=== PATIENT | female | born 1985 | race Asian ===

== ENCOUNTER → 2016-05-17 | Outpatient (CLI) | payer BC ==
[~2016-05-17] MED LIST: PRENTAB26 PO
[2016-05-17 21:15] LABS: GTGD 50 Grams
[2016-05-21 17:32] LABS: AFP CONCENTRATION 45.6 NG/ML; AFPTS GESTATIONAL AGE 16.6 WEEKS; AFPTS INSULIN DEP DIABETIC? NO; AFPTS MATERNAL WT 133 LBS; ESTRIOL MULTIPLE OF MEDIAN 0.71; HISTORY OF NTD NO; INHIBIN A 173 PG/ML; INHIBIN A MOM 0.94; REPEAT SAMPLE? NO; hCG MULTIPLE OF MEDIAN 1.53
== END | disposition home or self-care (01) ==
LOC: C.LAB1850 12:16
PROVIDERS: ATTEND Obstetrics & Gynecology
DX: Z34.00 Encounter for supervision of normal first pregnancy, unspecified trimester (principal)

== ENCOUNTER → 2016-08-07 | Outpatient (CLI) | payer BC ==
[2016-08-07 15:45] LABS: HEMATOCRIT 38.7 % (37-47)
[2016-08-07 16:43] LABS: URINE APPEARANCE CLEAR (CLEAR); URINE BILIRUBIN NEG (NEG); URINE COLOR YELLOW; URINE EPITHELIAL CELL AUTO >30 /lpf (0-5); URINE NITRITE NEG (NEG); URINE PH 8.5 (4.5-7.5); URINE SPECIFIC GRAVITY 1.007 (1.000-1.030); UROBILINOGEN NEG (NEG)
[2016-08-07 16:52] LABS: MANUAL MICROSCOPIC REQUIRED? NO; REVIEW REQ? NO
[2016-08-07 18:39] LABS: GTGD 50 Grams
== END | disposition home or self-care (01) ==
LOC: C.LAB1850 14:22
PROVIDERS: ATTEND Obstetrics & Gynecology
DX: Z34.02 Encounter for supervision of normal first pregnancy, second trimester (principal)

== ENCOUNTER → 2016-08-21 | Outpatient (CLI) | payer BC | END | disposition home or self-care (01) | LOC: C.LAB1850 08:57 | PROVIDERS: ATTEND Obstetrics & Gynecology | DX: O28.9 Unspecified abnormal findings on antenatal screening of mother (principal); Z3A.00 Weeks of gestation of pregnancy not specified ==

== ENCOUNTER → 2016-10-02 | Outpatient (CLI) | payer BC | END | disposition home or self-care (01) | LOC: C.LABSPEC 17:25 | PROVIDERS: ATTEND Obstetrics & Gynecology | DX: Z34.03 Encounter for supervision of normal first pregnancy, third trimester (principal) ==

== ENCOUNTER 2016-10-21 18:08 | Inpatient (IN) | payer BC ==
[~2016-10-21] VITALS: Ht 170.2 cm; Wt 59.0 kg
[2016-10-21] MEDS ORDERED: LACTATED RINGER'S 1000ML 500 ML IV PRN (19:05)
[2016-10-21] MEDS ORDERED: OXYTOCIN 30 UNITS/500ML NSS IV PRN (19:15)
[2016-10-21] MEDS ORDERED: PATIENT'S ALLERGY INFO NEEDS ENTERED SCH (19:15)
[2016-10-21 19:34] LABS: HEMATOCRIT 40.6 % (37-47); MEAN CELL VOLUME 97.1 fL (80-100); MEAN CORPUSCULAR HEMOGLOBIN 33.7 pg (25-34); MEAN CORPUSCULAR HGB CONC 34.7 g/dl (32-36); MEAN PLATELET VOLUME 10.6 fL (7.4-10.4); PLATELET COUNT 206 K/uL (130-400); RED BLOOD COUNT 4.18 M/uL (4.2-5.4); WHITE BLOOD COUNT 10.44 K/uL (4.8-10.8)
[2016-10-21 20:26] VITALS: Ht 170.2 cm; Wt 59.0 kg
[2016-10-21] MEDS ORDERED: PRENTAB26 PO (20:33)
[2016-10-21] MEDS: LACTATED RINGER'S 1000ML 1,000 ML IV SCH (21:53)
[2016-10-22] MEDS: LACTATED RINGER'S 1000ML 1,000 ML IV SCH ×2 (05:57→08:44)
[2016-10-22] MEDS ORDERED: EpHEDrine SULFATE INJ 50 MG/ML AMP ONE (08:01)
[2016-10-22] MEDS ORDERED: FENTANYL CITRATE INJ 50 MCG/1 ML 2 ML VIAL ONE (08:01)
[2016-10-22] MEDS ORDERED: FENTANYL 2MCG/ML ROPIV 1.25MG/ML 100ML BAG EPI ONE (08:01)
[2016-10-22] MEDS ORDERED: BUPIVACAINE 0.25% 30 ML VIAL ONE (08:01)
[2016-10-22] MEDS ORDERED: NALOXONE HCL INJ 1 MG in SODIUM CHLORIDE 0.9% 1000ML 1,000 ML IV PRN (08:52)
[2016-10-22] MEDS ORDERED: LACTATED RINGER'S 1000ML 500 ML IV PRN (08:52)
[2016-10-22] MEDS ORDERED: DiphenhydrAMINE HCL 50 MG/ML VIAL IV PRN (09:00)
[2016-10-22] MEDS ORDERED: EpHEDrine SULFATE INJ 50 MG/ML AMP IV PRN (09:00)
[2016-10-22] MEDS ORDERED: FENTANYL 2MCG/ML ROPIV 1.25MG/ML 100ML BAG EPI PRN (09:00)
[2016-10-22] MEDS ORDERED: NALBUPHINE HCL INJ 10 MG/ML AMP IV PRN (09:00)
[2016-10-22] MEDS ORDERED: ONDANSETRON INJ 2 MG/ML 2 ML VIAL IV PRN (09:00)
[2016-10-22] MEDS ORDERED: NALOXONE HCL INJ 0.4 MG/1 ML VIAL/CARP IV PRN (09:00)
[2016-10-22] MEDS ORDERED: LANOLIN OINT EXT PRN ×2 (11:30)
[2016-10-22] MEDS ORDERED: OXYTOCIN 30 UNITS/500ML NSS IV PRN (11:30)
[2016-10-22] MEDS ORDERED: ACETAMINOPHEN/CODEINE 300/30MG TAB PO PRN ×2 (11:30)
[2016-10-22] MEDS ORDERED: BENZOCAINE 20% AER SPR 82.5 GM CAN EXT PRN (11:30)
[2016-10-22] MEDS ORDERED: SUPERCREAM 0.870 % 15GM JAR EXT PRN (11:30)
[2016-10-22] MEDS ORDERED: ACETAMINOPHEN 325 MG TAB PO PRN (11:30)
--- NOTE | 2016-10-22 11:34 | Vaginal Delivery Summary ---
Vaginal Delivery Summary The patient is a 30-year-old female EDC 10/28/2016 who presents at 39 weeks with spontaneous rupture of membranes clear fluid approximately 26 hours ago. She begun on Pitocin augmentation of labor she received adequate epidural analgesia she progressed to full dilation and for delivery of a viable male infant. A loose nuchal cord was reduced at the time of delivery the anterior arm was also presenting and was delivered prior to the rest of the infant. Spontaneous crying occurred, mouth and nasopharynx were suctioned on the perineum and then the was placed on mother's abdomen for further attention and drying. There is movement of all 4 limbs and vigorous crying. Second-degree perineal laceration was repaired in the usual fashion with 3-0 chromic. Estimated blood loss 300 mL. Mother and infant were doing well after delivery.
--- NOTE | 2016-10-22 11:36 | Anesthesia Procedure Note ---
Anesthesia Epidural Removal Nt Date & Time Oct 22, 2016 at 11:36 Vital Signs Pain Intensity: 0.0 Notes Mental Status: alert / awake / arousable, participated in evaluation Nausea / Vomiting: adequately controlled Pain: adequately controlled Airway Patency, RR, SpO2: stable & adequate BP & HR: stable & adequate Hydration State: stable & adequate Neuraxial Anesthesia: was administered Anesthetic Complications: no major complications apparent, pt satisfied with anesthetic care Epidural: removed without complications, with tip intact
[2016-10-22 14:00] VITALS: BP 133/77; PULSE 79; TEMP 37.3; O2SAT 96
[2016-10-22 15:00] VITALS: BP 129/71; PULSE 90; TEMP 37.1; O2SAT 96
[2016-10-22 19:45] VITALS: BP 111/69; PULSE 81; TEMP 37.1
[2016-10-22] MEDS: DOCUSATE SODIUM 100 MG CAP PO SCH (20:58)
[2016-10-22 23:30] VITALS: BP 124/80; PULSE 85; TEMP 37
[2016-10-22] MEDS: IBUPROFEN 600 MG TAB PO PRN (23:49)
[2016-10-23 04:45] VITALS: BP 110/71; PULSE 74; TEMP 36.5
--- NOTE | 2016-10-23 06:32 | Progress Note ---
Subjective Oct 23, 2016. Subjective conversation w/ patient, physical exam Ambulation: ambulating normally Voiding: no voiding problems Passing Gas: Yes Diet Tolerance: Regular Diet Lochia: Moderate Feeding Type: Breast Feeding Review of Systems Constitutional: No fever, No chills, No sweats, No weight loss, No weakness, No fatigue, No problem reported Breast: No see HPI, No breast lump, No change in shape, No nipple discharge, No breast pain, No problem reported Female : No see HPI, No dysuria, No urinary frequency, No hematuria, No incontinence, No abnormal vaginal bleeding, No vaginal discharge, No problem reported Objective Vital Signs Date Time Temp Pulse Resp B/P (MAP) Pulse Ox O2 Delivery O2 Flow Rate FiO2 10/23/16 04:45 36.5 74 18 110/71 (84) Room Air 10/22/16 23:30 Room Air 10/22/16 23:30 37.0 85 18 124/80 (95) Room Air 10/22/16 19:45 37.1 81 16 111/69 (83) Room Air 10/22/16 15:45 Room Air 10/22/16 15:00 37.1 90 18 129/71 (90) 96 Room Air 10/22/16 14:00 37.3 79 16 133/77 (95) 96 Room Air Physical Exam General Appearance: WELL-APPEARING, NO APPARENT DISTRESS Abdomen: non tender, soft Fundus: Firm, Non-Tender, Relation to Umbilicus (2 below U) Extremities: no calf tenderness Laboratory Results Last 24 Hours Test 10/22/16 07:31 10/22/16 09:48 10/23/16 04:44 Bedside Glucose 107 mg/dl 103 mg/dl Assessment and Plan Day#: 1 Continue Routine Care: stable course continue current care plan.
[2016-10-23 07:25] LABS: HEMATOCRIT 34.6 % (37-47)
[2016-10-23 07:53] VITALS: BP 118/83; PULSE 74; O2SAT 98
[2016-10-23] MEDS: DOCUSATE SODIUM 100 MG CAP PO SCH ×2 (09:23→20:37)
[2016-10-23] MEDS: PRENATAL VITAMIN TAB PO SCH (09:23)
[2016-10-23] MEDS: IBUPROFEN 600 MG TAB PO PRN (09:24)
[2016-10-23 15:30] VITALS: BP 109/69; PULSE 66; TEMP 36.6
[2016-10-23] MEDS ORDERED: BISACODYL 5 MG TABEC PO SCH (20:00)
[2016-10-24 00:35] VITALS: BP 129/87; PULSE 73; TEMP 37; O2SAT 96
[2016-10-24] MEDS: IBUPROFEN 600 MG TAB PO PRN (01:46)
--- NOTE | 2016-10-24 07:12 | Progress Note ---
Subjective Oct 24, 2016. Subjective conversation w/ patient, physical exam Ambulation: ambulating normally Voiding: no voiding problems Diet Tolerance: Regular Diet Lochia: Small Feeding Type: Breast Feeding Pain: no pain issues Objective Vital Signs Date Time Temp Pulse Resp B/P (MAP) Pulse Ox O2 Delivery O2 Flow Rate FiO2 10/24/16 00:35 37.0 73 18 129/87 (101) 96 Room Air 10/24/16 00:35 Room Air 10/23/16 15:30 Room Air 10/23/16 15:30 36.6 66 20 109/69 (82) Room Air 10/23/16 07:53 74 20 118/83 (95) 98 Room Air 10/23/16 07:35 Room Air Physical Exam General Appearance: WELL-APPEARING, WD/WN, NO APPARENT DISTRESS Respiratory/Chest: lungs clear Cardiovascular: regular rate, rhythm Abdomen: non tender, soft Fundus: Firm, Relation to Umbilicus (2 down) Extremities: non-tender Assessment and Plan Post- Day#: 2 Continue Routine Care: stable, ready for d/c home, instructions reviewed, will call to make 6wk pp check. .
--- NOTE | 2016-10-24 07:13 | Discharge Instructions ---
Discharge Instructions Date of Service Oct 24, 2016. Admission Reason for Admission: Check Ruptured Membranes Discharge Discharge Diagnosis / Problem: after delivery Discharge Goals Goal(s): Routine recovery after delivery Medications Continue Dispensed Medications: supercream, dermaplast, tucks, lansinoh Activity Recommendations Activity Limitations: as noted below . Instructions / Follow-Up Instructions / Follow-Up ACTIVITY RECOMMENDATIONS: * Gradual return to full activity over the next 2-3 weeks. * No lifting - nothing heavier than baby over the next 2-3 weeks. * Do not engage in vigorous exercise, sexual activity or sports until cleared by your physician. * Do not drive or operate any motorized equipment until cleared by your physician. * You may shower/bathe daily. MEDICATIONS: For discomfort or pain, you may use Acetaminophen (Tylenol), Ibuprofen (Advil), or Naproxen (Aleve) following the package directions. For constipation you may use Colace following the package directions. BREAST CARE: If you are not breast feeding: * Wear a supportive bra 24 hours a day for one to two weeks. * Avoid stimulating your breasts and nipples as much as possible during the first few weeks after delivery. * When taking a shower, have the warm water hit your back, not breasts. * When your breasts feel full, apply ice packs. Usually three to four times a day helps ease the discomfort. * Take a mild pain medication (Tylenol / Motrin) when you are uncomfortable. If breast feeding: * Use breast milk to lubricate nipples. Lansinoh cream may be used for sore nipples. You do not need to remove cream prior to breast feeding. If using a different brand of cream, check the label for directions regarding removal of cream prior to nursing. * Wear a supportive bra. * If having problems with breasts or breast feeding, call a physician practice consultant or your health care provider. EPISIOTOMY CARE: After delivery, if you have an episiotomy (stitches), the following steps will ease discomfort and aid healing. * For the first 24 hours after delivery, place ice packs next to your episiotomy to help reduce swelling. * After the first 24 hour-period, sitz baths, either portable or in the tub, are suggested. A shower with a shower arm sprayed over the episiotomy may be comforting. * Jillian care should be done after each voiding and bowel movement. Squirt warm water from a plastic bottle over the perineum (region of the body between the anus and urinary opening) and pat dry. * Use Dermoplast to ease discomfort. Shake container. Mound directly over the episiotomy. Place a Tucks on a clean sanitary pad next to your episiotomy. SPECIAL CARE INSTRUCTIONS: When you are discharged from the hospital, it is important for you to follow the instructions listed below: * During the first week at home, you should be able to care for yourself and your baby. In addition, the usual light household activities are encouraged. * Limit your activities to the way you feel. Do not try to clean the house or move furniture. Be sensible. * If you actively engage in sports and have done so up until the time of your delivery, you may resume these activities as soon as you feel able. This may take up to one month or even longer. Use good judgment. * Continue to take your vitamins for at least six weeks after the of your baby. * Your diet need not be limited unless you were on a special diet before your delivery. Breast-feeding mothers need around 2500 calories per day and at least 64-80 ounces of fluid per day (8 to 10 glasses). * You should eat foods from the four major food groups. Crash diets or fad diets are to be avoided. Eating lean meats, fresh fruits and vegetables, low-fat dairy products, high fiber foods and a regular exercise program, will help you get back to your pre- weight without putting your health at risk. * Constipation is sometimes a problem after delivery. Take a mild laxative as needed. If breast feeding, Milk of Magnesia is acceptable to use. You may use a suppository or Fleets enema if no episiotomy. * A daily shower or tub bath is suggested. Be sure to thoroughly and gently dry the perineum. * A bloody vaginal discharge will usually continue until around four weeks post . A small amount of bleeding may continue for as long as six weeks. Vaginal discharge changes from the bright red bleeding after delivery to pink then brownish and finally yellowish-pink before becoming white and disappearing. * Bleeding may increase with activity. Your first period may come in 4-8 weeks. If you are breast feeding, your period may be delayed even longer. * Eek (sex) can begin whenever both you and your partner feel comfortable and do not have any form of genital infection. It is recommended that you wait at least six weeks for internal and external healing to occur. If you have questions, please talk to your health care practitioner. A condom should be used to prevent infection and . * Foreplay, gentle intercourse and lubrication is very important the first several times to prevent pain. A water-based lubricant such as K-Y jelly or Astroglide may be used. * If you have RH negative blood and your baby is RH positive, you will receive RHOGAM by injection prior to discharge. The nurse will give you a card to keep with you that has the date and place that you received RHOGAM after delivery. * During your care, you had a Rubella screen done to check for the presence of rubella antibodies in your blood. If your test was negative, you will receive a Rubella vaccine prior to discharge. This vaccine may cause a fever, soreness at the injection site and flu-like symptoms. If these symptoms persist, notify your health care practitioner. is not advised for one month after a Rubella vaccine. * Verbalizes understanding of car seat law as reviewed with patient nursing. * Car Seat hand-out given and reviewed with patient by nursing. * Shaken baby information reviewed with patient by nursing. Call you doctor if: * Heavy bleeding (saturating several pads an hour) or passing clots the size of your fist. * A fever >101 degrees F (38.3 degrees C) on two occasions four hours apart and /or chills. * Unusual pain in the pelvic or vaginal areas. * "Baby Blues" lasting longer than two weeks. If you have any questions or concerns, call your health care practitioner at . FOLLOW UP VISIT: * Please call the office at to schedule a 6 week examination. It is important you keep this appointment. It is important for you to make arrangements for either yearly or twice yearly check-ups thereafter. Current Hospital Diet Patient's current hospital diet: Regular OB Diet Discharge Diet Recommended Diet: Regular Diet Pending Studies Studies pending at discharge: no Medical Emergencies . Who to Call and When: Medical Emergencies: If at any time you feel your situation is an emergency, please call 911 immediately. . Non-Emergent Contact Non-Emergency issues call your: Readers' Advisory Service Librarian . . "Provider Documentation" section prepared by Maira Mena. . VTE Core Measure Inpt VTE Proph given/why not?: Treatment not indicated
[2016-10-24 08:00] VITALS: BP 111/73; PULSE 66; TEMP 36.4
[2016-10-24] MEDS: PRENATAL VITAMIN TAB PO SCH (09:00)
[2016-10-24] MEDS: DOCUSATE SODIUM 100 MG CAP PO SCH (09:00)
[2016-10-24 12:15] VITALS: BP_DIAS 73; PULSE 66; TEMP 36.4
== END 2016-10-24 12:15 | disposition home or self-care (01) | DRG 775 ==
LOC: C.OPB 18:08 → C.LD 18:08 → C.OPB 19:04 → C.LD 19:04 → C.OBG 10-22 15:11
PROVIDERS: ADMIT Obstetrics & Gynecology; ATTEND Obstetrics & Gynecology
PROC: 0KQM0ZZ Repair Perineum Muscle, Open Approach (ICD-10-PCS; principal; 2016-10-22)
PROC: 10E0XZZ Delivery of Products of Conception, External Approach (ICD-10-PCS; principal; 2016-10-22)
DX: O24.420 Gestational diabetes mellitus in childbirth, diet controlled (principal); O69.81X0 Labor and delivery complicated by cord around neck, without compression, not applicable or unspecified; O70.1 Second degree perineal laceration during delivery; Z37.0 Single live birth; Z3A.39 39 weeks gestation of pregnancy

== ENCOUNTER → 2016-12-31 | Outpatient (CLI) | payer BC ==
[2016-12-31 13:46] LABS: GLUCOSE,2HR PP 104 mg/dl (70-140)
[2016-12-31 15:32] LABS: GTGD 75 Grams
== END | disposition home or self-care (01) ==
LOC: C.LAB1850 10:15
PROVIDERS: ATTEND Obstetrics & Gynecology
DX: O24.419 Gestational diabetes mellitus in pregnancy, unspecified control (principal)

== ENCOUNTER 2021-06-10 07:58 | Inpatient (IN) ==
[2021-06-10] MEDS ORDERED: LACTATED RINGER'S 1,000 ML IV PRN (08:37)
[2021-06-10] MEDS ORDERED: PENICILLIN G POTASSIUM 6 MU in DEXTROSE 5% 250 ML IV STA (08:37)
[2021-06-10] MEDS ORDERED: OXYTOCIN 30 UNITS/500 ML BAG IV PRN ×3 (08:37→16:50)
--- NOTE | 2021-06-10 08:41 | History & Physical Report ---
Date of Service June 10, 2021 Assessment & Plan (1) Gestational diabetes mellitus (GDM) affecting : (2) GBS (group B streptococcus) UTI complicating : (3) SROM (spontaneous rupture of membranes): Plan: plan admission as likely ruptured and postdates. Fetus category one. Treat GBS positive status. Offered pitocin now. Considering. ok for expectant management if desires. Hourly BS. Anticipate . History of Present Illness Chief Complaint: rom and contractions Primary Care Provider: NO PCP Patient is a 35yoaf with iup at 40 4/7 who presents to labor and delivery noting trickling of fluid since 6:30 am and contractions. complicated by diet controlled gdm and ama. She is scheduled for postdates induction on Saturday. She notes good fm. and Delivery Plans AMA Weekly NSTs @36 weeks GDM *Begin monthly AC Us's @24wks GBS positive in urine *treat in labor OB Labs: Blood Type O Positive 10/26/20 Antibody Screen NEGATIVE 10/26/20 Hemoglobin 13.1 g/dL (12.0-16.0) 03/16/21 Hematocrit 38.5 % (37-47) 03/16/21 Mean Corpuscular Volume 96.7 fL (80-100) 10/26/20 Platelet Count 280 K/uL (130-400) 10/26/20 Rubella IgG Antibody Immune (Immune) 10/26/20 Rapid Plasma Reagin Nonreactive (Nonreactive) 10/26/20 Hepatitis B Surface Antigen Neg (Neg) 10/26/20 HIV (1&2) Ab and P24 Ag, 4th Gener Neg (Neg) 10/26/20 Glucose 2 Hour Postprandial 104 mg/dl (70-140) 12/31/16 Maternal Serum Alpha Fetoprotein 61.7 ng/mL 12/22/20 OB Optional Labs: Chlamydia trachomatis RNA NOT DETECTED (NOT DETECTED) 10/26/20 Neisseria gonorrhoeae RNA NOT DETECTED (NOT DETECTED) 10/26/20 Alpha Fetoprotein Triple Screen SEE NOTE 12/22/20 Labs Reviewed: low risk cfdna neg cf/sma Allergies Allergy/AdvReac Type Severity Reaction Status Date / Time No Known Allergies Allergy Verified 06/10/21 08:38 Home Medications Medication Instructions Recorded Confirmed Type acetone (urine) test (Ketone Urine #50 ea 11/17/20 06/08/21 Rx Test) blood sugar diagnostic (OneTouch #150 ea 11/17/20 06/08/21 Rx Verio test strips) blood-glucose meter (OneTouch #1 ea 11/17/20 06/08/21 Rx Verio Reflect Meter) lancets 33 gauge (OneTouch Delica #150 ea 11/17/20 06/08/21 Rx Lancets) prenat.vits,garcia,xec-wedv-ypuge 1 tab PO DAILY 06/10/21 06/10/21 History Patient History Medical History No known health problems Surgical History H/O wisdom tooth extraction Family History Father Diabetes Other Hypertension Denies family history of Ovarian cancer Prostate cancer Breast cancer Colorectal cancer Social History Smoking Status: Never smoker Second Hand Exposure: No; Hx Alcohol Use: No Hx Substance Use: No Preferred Language: Japanese Communication Ability: Effective Visual Impairment: No Limitations Hearing Ability: Normal Scientific Recruiter Required: No Beliefs That Will Affect Care: None marital status: marital status details: Christiano Schwartz (36) [phone] Current Living Situation: Spouse Current Living Situation Comment: and son current occupational status: employed 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 DateGA wksLbr LgthBirth wtSexType delAnesPlaceDel ProvPreterm?Comment 10/22/16 39 6-[address] [facility] Dr [place] GDM AD TAKER History noncontributory Physical Exam Constitutional: WD/WN, vitals as above Gastrointestinal (Abdomen): soft, gravid, nt Psychiatric: A+Ox3, euthymic affect Genitourinary: cx--5/75/-2, cannot palpate bag toco--q8min efm--150s with mod variabiltiy, small accels , no decels Results & Data ([facility]) Vital Signs (Past 12 Hours) Vital Signs Temp Pulse Resp BP 06/10/21 08:14 37.1 C 20 06/10/21 08:12 100 H 123/59 L Coding Level of Care Code None Diagnoses Gestational diabetes mellitus (GDM) affecting O24.419 GBS (group B streptococcus) UTI complicating O23.40; B95.1 SROM (spontaneous rupture of membranes)
[2021-06-10 08:54] LABS: Hematocrit (blood only) 36.8 % (37-47); Hemoglobin 12.7 g/dL (12.0-16.0); Mean Corpuscular Hemoglobin 33.2 pg (25-34); Mean Corpuscular Hgb Conc 34.5 g/dL (32-36); Mean Corpuscular Volume 96.3 fL (80-100); Mean Platelet Volume 10.8 fL (7.4-10.4); Platelet Count 217 K/uL (130-400); RDW Standard Deviation 45.2 fL (36.4-46.3); Red Blood Count 3.82 M/uL (4.2-5.4); White Blood Count 9.36 K/uL (4.8-10.8)
[2021-06-10] MEDS ORDERED: PENICILLIN G POTASSIUM 3 MU in DEXTROSE 5% 100 ML IV PRN (11:37)
[2021-06-10] MEDS ORDERED: DEXTROSE IV ONE (13:00)
[2021-06-10] MEDS ORDERED: PENICILLIN POTASSIUM MU IV ONE (13:00)
[2021-06-10] MEDS ORDERED: LIDOCAINE 1% LOCAL 20 ML VIAL ONE (16:30)
[2021-06-10] MEDS ORDERED: BUTORPHANOL TARTRATE 1 MG/ML VIAL ONE (16:36)
[2021-06-10] MEDS ORDERED: ACETAMINOPHEN 325 MG TAB PO PRN (16:50)
[2021-06-10] MEDS ORDERED: BENZOCAINE 20% AER SPR 82.5 GM CAN EXT PRN (16:50)
[2021-06-10] MEDS ORDERED: oxyCODONE/ACETAMINOPHEN 5mg/325mg TAB PO PRN (16:50)
[2021-06-10] MEDS ORDERED: DIPHTHERIA/TETANUS/PERTUSSIS 0.5 ML SYR/VIAL IM ONE (16:50)
[2021-06-10] MEDS ORDERED: HYDROCORTISONE ACETATE 25 MG SUPP PR PRN (16:50)
--- NOTE | 2021-06-10 16:57 | Delivery Summary ---
Supervising Physician Co-Signing Physician Notes Pre-operative Diagnosis: at 40 4/7 weeks srom labor Post-operative Diagnosis: same Procedure: arom of forebag second degree and clitoral laceration and repair EBL: 400cc Anesthesia: local infiltration of lidocaine Procedure: The patient presented with srom and early labor. Unfortunately walked for 6+ hours and only justo about every 8 minutes. Started pitocin and got to 6mU and she noted quickly she felt like the baby was coming. Checked and c/c/+1. The patient pushed for 3 contractions to deliver a viable female in vy position. The nose and mouth were bulb suctioned on the perineum and the rest of the was then delivered without difficulty. A nuchal cord x 1 was easily reduced. The baby was vigorous. The nose and mouth were again bulb suctioned and the was placed in the maternal abdomen for drying and attention. Cord was clamped and cut at at one minute of life. Cord blood and segment obtained. Placenta delivered spontaneous, intact with a three vessel cord. Cervix/sulci/rectum were intact. A second degree perineal laceration was repaired in the normal standard fashion. a bleeding tear under the clitoris was repaired with several interrupted sutures of 4-0 vicryl. Hemostasis obtained with dilute pitocin and fundal massage. Apgars were 8/9. Mother and baby doing well at the end of the delivery. Vaginal Delivery Summary Date of Service June 10, 2021 Vaginal Delivery Summary and 2nd Degree LAC [facility] Vaginal Delivery Charge Delivery Type Details: and 2nd Degree LAC
[2021-06-10] MEDS: DOCUSATE SODIUM 100 MG CAP PO SCH (20:27)
[2021-06-11] MEDS: IBUPROFEN 600 MG TAB PO PRN ×3 (06:24→19:23)
[2021-06-11 06:49] LABS: Hematocrit (blood only) 36.4 % (37-47); Hemoglobin 12.1 g/dL (12.0-16.0)
--- NOTE | 2021-06-11 07:38 | Obstetrical Progress Note ---
Date of Service June 11, 2021 Assessment & Plan (1) Vaginal delivery: Doing well. Routine care. No concerns. Day #:: 1 Subjective Ambulation: ambulating normally Voiding: no voiding problems Passing Gas:: Yes Diet Tolerance:: regular diet Lochia:: Small Feeding Type:: breast feeding cramps with breast feeding. Physical Exam Constitutional WD/WN, vitals as above Cardiovascular Extremities: no calf tenderness and no edema Gastrointestinal (Abdomen) soft, nt, nd ff/nt at 3 below u Results & Data ([facility]) Vital Signs (Past 12 Hours) Vital Signs Temp Pulse Resp BP Pulse Ox 06/11/21 03:41 36.8 C 80 14 102/63 97 06/10/21 22:54 36.8 C 83 14 109/69 96 06/10/21 20:20 37.6 C H 94 H 16 103/72
[2021-06-11] MEDS: PRENATAL VITAMIN 1 TAB PO SCH (08:31)
[2021-06-11] MEDS: DOCUSATE SODIUM 100 MG CAP PO SCH ×2 (08:31→19:23)
[2021-06-11] MEDS ORDERED: bisacodyL 5 MG TABEC PO SCH (20:00)
[2021-06-12] MEDS: IBUPROFEN 600 MG TAB PO PRN ×2 (01:08→07:50)
--- NOTE | 2021-06-12 06:25 | Obstetrical Progress Note ---
Date of Service <Rita Reagan MD - Last Filed: 06/12/21 07:09> June 12, 2021 Assessment & Plan <Rita Reagan MD - Last Filed: 06/12/21 07:09> (1) Vaginal delivery: 35 yo , complicated by AMA, GDMA1, now PPD2 from at 40wk4d -Feeling well, discharge today 06/12 -Vitals reviewed- HDS, afebrile -Blood type O+, GBS+, Rubella immune -F/u in 6 weeks with OB <Veena Marks MD, FACOG - Last Filed: 06/12/21 07:16> (1) Vaginal delivery: Subjective <Rita Reagan MD - Last Filed: 06/12/21 07:09> Ambulation: ambulating normally Voiding: no voiding problems Passing Gas:: Yes Diet Tolerance:: regular diet Lochia:: Small Feeding Type:: breast feeding Current Pain Level(1-10): 0 Pt feeling well, no acute complaints, no pain at present. States going well. Review of Systems Denies fevers/chills. Denies dyspnea, cough. Denies chest pain. Denies breast pain or discharge. Denies dysuria. Denies headache. Denies back pain. Physical Exam <Rita Reagan MD - Last Filed: 06/12/21 07:09> General: Alert, oriented, no acute distress Cardiac: Regular rate and rhythm, normal S1, S2. No murmurs appreciated. Respiratory: Clear to auscultation b/l with good air flow entry, symmetric chest rise and fall. No wheezes or crackles. No increased work of breathing or accessory muscle use Abdomen: Soft, nontender, nondistended. Fundus firm and palpable at 3 cm below umbilicus. No guarding or rebound. Skin: No rashes or lesions Extremities: Warm, dry, well-perfused with capillary refill <2s b/l. No lower extremity edema, erythema or swelling. Negative Sulema's sign b/l. Results & Data ([facility]) <Rita Reagan MD - Last Filed: 06/12/21 07:09> Vital Signs (Past 12 Hours) Vital Signs Temp Pulse Resp BP Pulse Ox 06/11/21 22:51 36.7 C 86 16 111/70 98 06/11/21 19:20 36.6 C 88 16 104/66 97 <Veena Marks MD, FACOG - Last Filed: 06/12/21 07:16> Co-Signing Physician Notes Resident Physician Supervision Note: I interviewed and examined the patient. Discussed with Dr. Reagan and agree with findings and plan as documented in the note. Any exceptions or clarifications are listed here: Doing well. Plan /c today. Instructions reviewed. f/u 6 weeks. Documented By: Veena Marks MD, FACOG Resident Activity Tracking <Rita Reagan MD - Last Filed: 06/12/21 07:09> Resident Involvement: Resident Care Provided Care Provided: OB Delivery
[2021-06-12] MEDS: DOCUSATE SODIUM 100 MG CAP PO SCH (07:50)
[2021-06-12] MEDS: PRENATAL VITAMIN 1 TAB PO SCH (07:50)
[2021-06-12] MEDS ORDERED: bisacodyL 10 MG SUPP PR PRN (09:00)
== END 2021-06-12 11:45 | disposition home or self-care (01) | DRG 768 ==
LOC: OPB 07:58 → 4S1 08:03 → 4S2 19:30